=== PATIENT | male | born 1955 | race Caucasian/White ===

== ENCOUNTER 2023-06-13 09:20 | Day surgery (SDC) | payer OTHER, SELFPAY ==
[2023-06-13 10:14] VITALS: BMI 30.3
--- NOTE | 2023-06-13 11:00 | ITS.CL.CARDI ---
[employer] - Cardioversion
Cardioversion
Procedure Report:
Date of Procedure:
Procedure: Cardioversion
Indication: Symptomatic atrial fibrillation
Performing Physician: Chino Moser MD
Technique: The patient was brought to the holding area. Signed informed consent was obtained. A time out was called and performed. The patient was anesthetized by the anesthesia service. Anticoagulation status was reviewed and appropriate. R2 pads
were placed anteriorly and posteriorly. A 200 J and 360J synchronized biphasic shock failed, but a third 360J synchronized biphasic shock restored normal sinus rhythm without significant bradycardia. There were no complications.
Conclusion: Uncomplicated cardioversion from atrial fibrillation to sinus rhythm.
Recommendation: Routine post cardioversion care. Continue skilled nursing anticoagulation.
== END 2023-06-13 11:35 | disposition home or self-care (01) ==
LOC: CATH 09:20
PROVIDERS: ATTENDING PHYSICIAN Internal Medicine Cardiovascular Disease; FAMILY PHYSICIAN Family Medicine
DX: I48.91 Unspecified atrial fibrillation (principal); R06.02 Shortness of breath; R06.09 Other forms of dyspnea; Z79.01 Long term (current) use of anticoagulants
CPT/HCPCS: 92960; 93005

== ENCOUNTER → 2023-07-11 12:41 | Outpatient (REF) | payer OTHER, SELFPAY | LOC: RCS 12:41 | PROVIDERS: ATTENDING PHYSICIAN Physician Assistant; FAMILY PHYSICIAN Family Medicine | DX: I48.0 Paroxysmal atrial fibrillation (principal); I42.9 Cardiomyopathy, unspecified; I34.0 Nonrheumatic mitral (valve) insufficiency | CPT/HCPCS: 93017; 93350 ==

== ENCOUNTER → 2023-10-31 14:55 | Outpatient (REF) | payer OTHER, SELFPAY | LOC: RCS 14:55 | PROVIDERS: ATTENDING PHYSICIAN Internal Medicine Cardiovascular Disease; FAMILY PHYSICIAN Family Medicine | DX: I42.9 Cardiomyopathy, unspecified (principal) | CPT/HCPCS: 93306 ==

== ENCOUNTER → 2024-12-08 14:34 | Outpatient (REF) | payer OTHER, SELFPAY ==
[2024-12-08 16:55] LABS: ALT (SGPT) 31 U/L (0-50); AST (SGOT) 34 U/L (17-59); Albumin 4.7 g/dl (3.5-5.0); Alkaline Phosphatase 46 U/L (38-126); Blood Urea Nitrogen 27 mg/dl (9-20); Calcium 9.5 mg/dl (8.4-10.2); Carbon Dioxide 28 mmol/L (22-30); Chloride 106 mmol/L (98-107); HDL Cholesterol 48 mg/dl; Potassium 4.6 mmol/L (3.5-5.1); Sodium 141 mmol/L (135-145); Very Low Density Lipoprotein 45 mg/dl (0-30); eGFR > 60.00
[2024-12-08 17:04] LABS: Glucose 93 mg/dl (70-99); LDL Cholesterol, Calculated 181 mg/dl; Total Protein 7.4 g/dl (6.3-8.2)
== END ==
LOC: REG 14:34
PROVIDERS: ATTENDING PHYSICIAN Internal Medicine Cardiovascular Disease; FAMILY PHYSICIAN Family Medicine
DX: E78.2 Mixed hyperlipidemia (principal)
CPT/HCPCS: 36415; 80053; 80061